=== PATIENT | male | born 1970 | race American Indian/Alaskan Native ===

== ENCOUNTER 2019-12-11 05:51 | Day surgery (SDC) | payer BC ==
[~2019-12-11 05:51] MED LIST: ceFAZolin/STERILE WATER 2 GM/20 ML SYRINGE IV NR
[2019-12-11] MEDS ORDERED: LACTATED RINGERS 1,000 ML IV SCH (06:21)
[2019-12-11] MEDS ORDERED: MIDAZOLAM 2 MG/2 ML INJ IV ONE (06:22)
[2019-12-11] MEDS ORDERED: BACTERIOSTATIC SODIUM CHLORIDE 0.9% 30 ML VIAL INFILTRATI ONE (06:24)
[2019-12-11] MEDS ORDERED: HYDROmorphone 1 MG/1 ML INJ ONE (07:13)
[2019-12-11] MEDS ORDERED: propofoL 200 MG/20 ML VIAL IV ONE (07:13)
[2019-12-11] MEDS ORDERED: LIDOCAINE MPF (2%) 20 MG/1 ML VIAL 5 ML ONE (07:14)
--- NOTE | 2019-12-11 07:35 | Anesthesia Consultation ---
Anesthesia Consult and Med Hx Date of service: 12/11/19 - Airway Anesthetic Teeth Evaluation: Good, Bridges ROM Head & Neck: Adequate Mental/Hyoid Distance: Adequate Mallampati Class: Class I Intubation Access Assessment: Good - Pulmonary Exam CTA: Yes - Cardiac Exam Cardiac Exam: RRR - Pre-Operative Health Status ASA Pre-Surgery Classification: ASA1 Proposed Anesthetic Plan: General - Pulmonary Hx Smoking: No Hx Respiratory Symptoms: No Hx Sleep Apnea: No (ROSEMARIE PRE SCREEN LOW RISK) - Cardiovascular System Hx Hypertension: No Hx Heart Attack/AMI: No - Central Nervous System CVA: No - Gastrointestinal Hx Gastroesophageal Reflux Disease: No - Endocrine Hx Renal Disease: No Hx Liver Disease: No Hx Insulin Dependent Diabetes: No Hx Non-Insulin Dependent Diabetes: No Hx Thyroid Disease: No - Other Systems Hx Obesity: No - Additional Comments Anesthesia Medical History Comments: No hx anesthetic complications.
[2019-12-11] MEDS ORDERED: HYDROmorphone 1 MG/1 ML INJ IV PRN (07:36)
--- NOTE | 2019-12-11 07:36 | Anesthesia Day of Surgery ---
Anesthesia Day of Surgery - Day of Surgery Patient Examined: Yes Patient H&P Reviewed: Yes Patient is NPO: Yes
[2019-12-11] MEDS ORDERED: MIDAZOLAM 2 MG/2 ML INJ ONE (07:43)
[2019-12-11] MEDS ORDERED: fentaNYL 100 MCG/2 ML INJ ONE (08:18)
[2019-12-11] MEDS ORDERED: SODIUM CHLORIDE 0.9% IRR 1,500 ML BOTTLE IR ONE (08:19)
[2019-12-11] MEDS ORDERED: ONDANSETRON 4 MG/2 ML INJ ONE (08:36)
--- NOTE | 2019-12-11 08:44 | Short Stay Summary ---
Short Stay Documentation Date of service: 12/11/19 - History H&P: obtained from office - Allergies and Medications Current Medications: Allergies No Known Allergies Allergy (Verified 12/04/19 17:36) Home Medications Medication Instructions Recorded Confirmed Last Taken Type No Known Home Medications [No 12/04/19 12/04/19 Unknown History Reported Home Medications] Active Medications Cefazolin Sodium (Ancef/Sterile Water 2 Gm/20 Ml) 2 gm IV PREOP NR Stop: 12/11/19 23:00 Hydromorphone HCl (Dilaudid) 0.5 mg IV Q10MIN PRN PRN Reason: Pain , Severe (7-10) Lactated Ringer's (Lactated Ringers) 1,000 mls @ 100 mls/hr IV DIRECT RADHA Last Admin: 12/11/19 06:40 Dose: 100 mls/hr Documented by: - Brief post op/procedure progress note Date of procedure: 12/11/19 Pre-op diagnosis: phimosis Post-op diagnosis: same Procedure: circ Anesthesia: GETA Surgeon: JENNIFER KINSEY Estimated blood loss: minimal Pathology: list (foreskin) Specimen disposition: to lab Condition: stable - Hospital course Hospital course: pearl on chart - Disposition Condition at discharge: Stable Disposition: DC-01 TO HOME OR SELFCARE Short Stay Discharge Plan Follow up with: BETINA ESCOBAR MD [Primary Care Provider] - 7 Days
[2019-12-11] MEDS ORDERED: HYDROcodone/ACETAMINOPHEN 5-325 MG TAB PO PRN (09:11)
--- NOTE | 2019-12-11 09:16 | Operative Report ---
PREOPERATIVE DIAGNOSIS: Phimosis. POSTOPERATIVE DIAGNOSIS: Phimosis. PROCEDURE: Circumcision. SURGEON: Richmond Cook MD ANESTHESIA: General. ESTIMATED BLOOD LOSS: Minimal. FLUIDS: Crystalloid. COMPLICATIONS: No complications. INDICATIONS: This patient is a 49-year-old gentleman seen in the office for recurrent worsening phimosis with adhesions on exam. Risks, benefits, and complications were explained. The patient agreed to proceed with circumcision. DESCRIPTION OF PROCEDURE: The patient was taken to the operative suite, placed in a supine position. After adequate general anesthesia, his foreskin was marked at the level of the coronal ridge. Dorsal and ventral slit was made. Foreskin was circumferentially removed and sent for routine pathologic evaluation. Shaft skin was retracted. Adequate hemostasis achieved. Proximal and distal shaft skin was reapproximated and closed with 3-0 chromic in interrupted fashion. Xeroform gauze was placed around the incision followed by Carri and Charleen. The patient tolerated the procedure well and was extubated and taken to recovery room. He will go home on [place] and follow up in the office. JOB# [id number] LOBITO/OSWALD
[2019-12-11 09:43] VITALS: BP 120/74
--- NOTE | 2019-12-11 14:48 | Post Anesthesia Evaluation ---
- Post Anesthesia Evaluation Patient Participated: Yes Airway Patent: Yes Stable Respiratory Function: Yes Nausea/Vomiting: No Temp > 96.8F: Yes Pain Manageable: Yes Adequeate Hydration: Yes Anesthesia Complications: No
== END 2019-12-11 10:10 | disposition home or self-care (01) ==
LOC: OR 05:51
PROVIDERS: ATTEND Urology
DX: N47.1 Phimosis (principal); Z79.899 Other long term (current) drug therapy; Z98.890 Other specified postprocedural states
CPT/HCPCS: 54161; 88304; J0690; J1170; J2250; J2405; J2704; J3010; J7120